=== PATIENT | female | born 1950 ===

== ENCOUNTER → 2018-10-15 | Outpatient (REF) | payer MEDICARE ==
[2018-10-15 13:28] LABS: PLATELET COUNT, AUTOMATED 209 K/uL (150-450)
== END ==
PROVIDERS: ATTEND Family Medicine
DX: Z13.83 Encounter for screening for respiratory disorder NEC (principal); R59.9 Enlarged lymph nodes, unspecified; R05 Cough; R06.02 Shortness of breath
CPT/HCPCS: 82040; 82247; 82310; 82374; 82435; 82565; 82947; 83605; 84075; 84132; 84146; 84155; 84295; 84450; 84460; 84484; 84520; 85025; 85379; 86140